=== PATIENT | female | born 1935 | race Caucasian/White ===

== ENCOUNTER → 2017-09-06 | Outpatient (CLI) | payer MEDICARE, OTHER | END | disposition home or self-care (01) | LOC: US 13:59 | DX: R60.0 Localized edema (principal) ==

== ENCOUNTER → 2018-01-03 | Outpatient (CLI) | payer MEDICARE, OTHER ==
--- NOTE | ~2018-01-03 | EKG ---
[place], [place] ELECTROCARDIOGRAM REPORT NAME: TEE NGUYEN UNIT #: [id number] ROOM: DOCTOR: EPIPHANY DRAFT REPORT BIRTHDATE: [birth year] [facility] Test Date: 2018-01-03 Test Time: 12:03:52 Pat Name: TEE NGUYEN Department: Room: Gender: F Public Records Researcher: Tisha Osman : 1935 Requested By: CRISTOBAL NGUYEN Order Number: [id number] Reading MD: Brennon Dai MD Measurements Intervals [place] Rate: 82 P: 6 VT: 185 QRS: -22 QRSD: 70 T: 1 QT: 391 QTc: 457 Interpretive Statements Sinus rhythm Frequent PACs Borderline left axis deviation Borderline T abnormalities, inferior leads Electronically Signed On 01-03-2018 19:45:34 PDT by Brennon Dai MD CM:EKGRPT:ELECTROCARDIOGRAM REPORT [id number] CRISTOBAL NGUYEN MD EPIPHANY DRAFT REPORT CRISTOBAL NGUYEN MD
== END | disposition home or self-care (01) ==
LOC: CARD 11:39
DX: I49.9 Cardiac arrhythmia, unspecified (principal)

== ENCOUNTER → 2018-10-22 | Outpatient (CLI) | payer MEDICARE, OTHER | END | disposition home or self-care (01) | LOC: US 12:23 | DX: N26.1 Atrophy of kidney (terminal) (principal); N18.9 Chronic kidney disease, unspecified ==

== ENCOUNTER → 2018-12-11 | Outpatient (CLI) | payer MEDICARE, OTHER ==
[~2018-12-11] MED LIST: MEDROL DOSEPAK4 MG PO
== END | disposition home or self-care (01) ==
LOC: RAD 12:44
DX: M51.16 Intervertebral disc disorders with radiculopathy, lumbar region (principal); M48.061 Spinal stenosis, lumbar region without neurogenic claudication; G95.89 Other specified diseases of spinal cord

== ENCOUNTER 2018-12-15 10:51 | Emergency (ER) | payer MEDICARE, OTHER ==
[~2018-12-15] VITALS: Ht 213.3 cm; Wt 72.6 kg
[2018-12-15] MEDS ORDERED: MEDROL DOSEPAK4 MG PO (13:28)
== END 2018-12-15 14:00 | disposition home or self-care (01) ==
LOC: ED 10:51
DX: S76.012A Strain of muscle, fascia and tendon of left hip, initial encounter (principal); X50.1XXA Overexertion from prolonged static or awkward postures, initial encounter; Y93.89 Activity, other specified; Y92.89 Other specified places as the place of occurrence of the external cause; Y99.8 Other external cause status

== ENCOUNTER 2018-12-30 18:33 | Inpatient (IN) | payer MEDICARE, OTHER ==
[~2018-12-30] VITALS: Ht 162.6 cm; Wt 82.8 kg
[2018-12-30] VITALS (11 sets, daily range): BP systolic 98–113; BP diastolic 43–69
[2018-12-30 18:53] LABS: BASO # 0.1 10*3/uL (0.0-0.1); BASO % 0.5 % (0.0-1.0); EOS # 0.1 10*3/uL (0.0-0.4); EOS % 0.8 % (1.0-4.0); HEMATOCRIT 37.8 % (37.0-47.0); HEMOGLOBIN 12.5 g/dl (12.0-16.0); LYMPH # 3.1 10*3/uL (1.3-4.4); LYMPH % 25.6 % (27.0-41.0); MEAN CELL VOLUME 87.7 fl (81.0-99.0); MEAN CORPUSCULAR HGB CONC 33.1 g/dl (33.0-37.0); MEAN PLATELET VOLUME 10.7 fl (9.6-12.3); MONO % 8.6 % (3.0-9.0); NEUT # 7.7 10*3/uL (2.3-7.9); NEUT % 63.5 % (47.0-73.0); PLATELET COUNT AUTOMATED 296 10*3/uL (130-400); RED BLOOD COUNT 4.31 10*6/uL (4.10-5.10); RED CELL DISTRI WIDTH 14.6 % (0-14.5); WHITE BLOOD COUNT 12.1 10*3/uL (4.8-10.8)
[2018-12-30 19:04] LABS: ACT PARTIAL THROMBO TIME 25.1 SECONDS (20.0-32.1)
[2018-12-30 19:10] LABS: ALBUMIN 3.6 gm/dl (3.1-4.5); CREATININE 1.97 mg/dL (0.55-1.02); POTASSIUM 4.1 mmol/L (3.5-5.1); TOTAL PROTEIN 6.9 gm/dL (6.4-8.2); TROPONIN I 0.016 ng/ml (<0.045)
--- NOTE | 2018-12-30 19:31 | NUR ---
PATIENT REPORTS NO URGE TO VOID AT THIS TIME
[2018-12-30 21:12] LABS: BILIRUBIN NEGATIVE (NEGATIVE); BLOOD TRACE-INTACT (NEGATIVE); CLARITY CLEAR (CLEAR); COLOR YELLOW (YELLOW); GLUCOSE NEGATIVE (NEGATIVE); KETONE NEGATIVE (NEGATIVE); LEUKO ESTERASE 1+ (NEGATIVE); NITRITE NEGATIVE (NEGATIVE); PH 5.5 (5.0-9.0)
[2018-12-30 21:19] LABS: BACTERIA 1+; EPITHELIAL CELLS 21-30
[2018-12-30 21:20] LABS: RBC 0-2 rbc/hpf (0-2)
--- NOTE | 2018-12-30 22:07 | NUR ---
A 83, admitted to , under the services of CRISTOBAL Solis MD with a diagnosis of MAREN,ORTHOSTATIC HYPOTENSION.DEHYDRATION. Chief complaint is SHORTNESS OF BREATH. Patient arrived via stretcher from ER. Monitor applied. Initial assessment completed. Vital signs taken and recorded. CRISTOBAL SOLIS MD notified of admission to the unit. Orders received. See assessment for past medical history, medications and allergies. Patient and/or family oriented to unit. [facility] visitation policy reviewed. Clothing/patient valuable form completed. OSVALDO CAAL
--- NOTE | 2018-12-30 22:30 | NUR ---
HOME MEDICATIONS UP TO DATE WITH LIST PROVIDED BY PATIENT.
[2018-12-30] MEDS ORDERED: ADULT ASPIRIN R81 MG PO (22:35)
[2018-12-30] MEDS ORDERED: AVAPRO75 MG PO (22:36)
[2018-12-30] MEDS ORDERED: CARDIZEM CD120 M2 PO (22:36)
[2018-12-30] MEDS ORDERED: CITALOPRAM10 MG PO (22:37)
[2018-12-30] MEDS ORDERED: GLIPIZIDE XL2.5 M1 PO (22:39)
[2018-12-30] MEDS ORDERED: NATURE'S BLEND F1 MG PO (22:39)
[2018-12-30] MEDS ORDERED: ALTOPREV20 MG PO (22:40)
[2018-12-30] MEDS ORDERED: MELOXICAM15 MG PO (22:40)
[2018-12-30] MEDS ORDERED: FERREX 150150 MG PO (22:42)
--- NOTE | 2018-12-30 22:45 | NUR ---
DR NGUYEN CALLED FOR ADMISSION ORDERS.SEE NEW ORDERS.
[2018-12-31] VITALS: BP 130/53
--- NOTE | 2018-12-31 00:30 | NUR ---
IV discontinued. Site a symptomatic. Pressure applied. Sterile dressing applied. IV started left antecubital with #22 angiocath after 1 attempt. The IV site was prepped with Chloraprep. Heparin lock attached. Sterile dressing applied. Patient tolerated precedure well. Procedure performed according to [facility] policy & procedure. AILEEN HERNANDEZ
--- NOTE | 2018-12-31 03:33 | NUR ---
PATIENT RESTING WITH EYES CLOSED AT THIS TIME. RESPIRATIONS EASY AND UNLABORED. NO DISTRESS NOTED. CALL LIGHT WITHIN REACH.
[2018-12-31 07:04] LABS: BASO # 0.1 10*3/uL (0.0-0.1); BASO % 0.6 % (0.0-1.0); EOS # 0.1 10*3/uL (0.0-0.4); EOS % 1.5 % (1.0-4.0); HEMATOCRIT 32.9 % (37.0-47.0); HEMOGLOBIN 10.7 g/dl (12.0-16.0); LYMPH # 1.9 10*3/uL (1.3-4.4); LYMPH % 24.5 % (27.0-41.0); MEAN CELL VOLUME 88.4 fl (81.0-99.0); MEAN CORPUSCULAR HGB 28.8 pg (27.0-31.0); MEAN CORPUSCULAR HGB CONC 32.5 g/dl (33.0-37.0); MEAN PLATELET VOLUME 10.7 fl (9.6-12.3); MONO # 0.7 10*3/uL (0.1-1.0); MONO % 9.2 % (3.0-9.0); NEUT # 4.9 10*3/uL (2.3-7.9); PLATELET COUNT AUTOMATED 243 10*3/uL (130-400); RED BLOOD COUNT 3.72 10*6/uL (4.10-5.10); RED CELL DISTRI WIDTH 14.6 % (0-14.5); WHITE BLOOD COUNT 7.8 10*3/uL (4.8-10.8)
[2018-12-31 07:34] LABS: CREATININE 1.43 mg/dL (0.55-1.02); POTASSIUM 4.3 mmol/L (3.5-5.1)
[2018-12-31 08:00] VITALS: BP 127/60
--- NOTE | 2018-12-31 08:20 | NUR ---
PT RESTING IN BED. IVF INFUSING WITH NO PROBLEM. NO C/O AT THIS TIME. CALL CON EDMOND. SEE SHIFT ASSESSMENT.
--- NOTE | 2018-12-31 10:00 | NUR ---
Discharge instructions reviewed with patient/family. Patient receptive and verbalizes understanding. Follow-up care arranged. Written instructions given to patient/family. HEPLOCK REMOVED 2X2 APPLIED. HOLTER MONITOR REMOVED. PT ESCORTED VIA WHEELCHAIR FOR DISCHARGE WITH VISITOR AT HER SIDE. RAJNI FENG R
== END 2018-12-31 10:00 | disposition home or self-care (01) | DRG 640 ==
LOC: ED 18:33 → EDHOLD 20:41 → 5E 20:41
PROVIDERS: Emergency Medicine; ADMIT Internal Medicine
DX: E86.0 Dehydration (principal); N17.0 Acute kidney failure with tubular necrosis; I95.1 Orthostatic hypotension; I12.9 Hypertensive chronic kidney disease with stage 1 through stage 4 chronic kidney disease, or unspecified chronic kidney disease; N18.9 Chronic kidney disease, unspecified; G89.29 Other chronic pain; E78.5 Hyperlipidemia, unspecified; M54.9 Dorsalgia, unspecified; F32.9 Major depressive disorder, single episode, unspecified; M16.10 Unilateral primary osteoarthritis, unspecified hip; Z91.81 History of falling; Z98.42 Cataract extraction status, left eye; Z82.49 Family history of ischemic heart disease and other diseases of the circulatory system; Z80.3 Family history of malignant neoplasm of breast

== ENCOUNTER → 2019-01-03 | Outpatient (CLI) | payer MEDICARE, OTHER ==
[~2019-01-03] MED LIST changes: +ADULT ASPIRIN R81 MG PO; +ALTOPREV20 MG PO; +AVAPRO75 MG PO; +CARDIZEM CD120 M2 PO; +CITALOPRAM10 MG PO; +FERREX 150150 MG PO; +GLIPIZIDE XL2.5 M1 PO; +MELOXICAM15 MG PO; +NATURE'S BLEND F1 MG PO
[2019-01-03 12:56] LABS: BASO % 0.5 % (0.0-1.0); EOS # 0.1 10*3/uL (0.0-0.4); EOS % 1.5 % (1.0-4.0); HEMATOCRIT 38.7 % (37.0-47.0); HEMOGLOBIN 12.6 g/dl (12.0-16.0); LYMPH # 2.3 10*3/uL (1.3-4.4); LYMPH % 27.2 % (27.0-41.0); MEAN CELL VOLUME 89.6 fl (81.0-99.0); MEAN CORPUSCULAR HGB 29.2 pg (27.0-31.0); MEAN CORPUSCULAR HGB CONC 32.6 g/dl (33.0-37.0); MEAN PLATELET VOLUME 10.7 fl (9.6-12.3); MONO # 0.7 10*3/uL (0.1-1.0); MONO % 7.7 % (3.0-9.0); NEUT # 5.2 10*3/uL (2.3-7.9); NEUT % 62.1 % (47.0-73.0); PLATELET COUNT AUTOMATED 302 10*3/uL (130-400); RED BLOOD COUNT 4.32 10*6/uL (4.10-5.10); RED CELL DISTRI WIDTH 14.6 % (0-14.5); WHITE BLOOD COUNT 8.4 10*3/uL (4.8-10.8)
[2019-01-03 13:15] LABS: CREATININE 1.46 mg/dL (0.55-1.02); POTASSIUM 4.1 mmol/L (3.5-5.1)
== END | disposition home or self-care (01) ==
LOC: LAB 12:27
PROVIDERS: Internal Medicine
DX: E61.1 Iron deficiency (principal); N18.3 Chronic kidney disease, stage 3 (moderate)

== ENCOUNTER → 2019-02-12 | Outpatient (CLI) | payer MEDICARE, OTHER | END | disposition home or self-care (01) | LOC: CARD 14:00 | DX: R06.02 Shortness of breath (principal) ==

== ENCOUNTER 2019-04-03 09:20 | Emergency (ER) | payer MEDICARE, OTHER ==
[~2019-04-03] VITALS: Ht 165.1 cm; Wt 81.6 kg
[2019-04-03] MEDS ORDERED: TESSALON PERLE100 M1 PO (10:27)
== END 2019-04-03 10:38 | disposition home or self-care (01) ==
LOC: ED 09:20
DX: J06.9 Acute upper respiratory infection, unspecified (principal); I10 Essential (primary) hypertension; E78.00 Pure hypercholesterolemia, unspecified; Z79.899 Other long term (current) drug therapy; Z79.82 Long term (current) use of aspirin

== ENCOUNTER → 2019-07-26 | Outpatient (CLI) | payer MEDICARE, OTHER ==
[~2019-07-26] MED LIST changes: +TESSALON PERLE100 M1 PO
== END | disposition home or self-care (01) ==
LOC: US 07-03 12:30
DX: I73.9 Peripheral vascular disease, unspecified (principal); Z96.642 Presence of left artificial hip joint

== ENCOUNTER 2019-12-04 12:02 | Inpatient (IN) | payer MEDICARE, OTHER ==
[~2019-12-04] VITALS: Ht 160 cm; Wt 85.5 kg
[~2019-12-04 12:02] MED LIST changes: -CITALOPRAM10 MG PO; +CITALOPRAM20 MG PO
[2019-12-04 12:05] VITALS: BP 137/57
--- NOTE | 2019-12-04 13:00 | NUR ---
PATIENT DENIES WOUNDS. A&OX4.
[2019-12-04 13:30] LABS: BASO % 0.5 % (0.0-1.0); EOS # 0.1 10*3/uL (0.0-0.4); EOS % 1.5 % (1.0-4.0); HEMATOCRIT 35.1 % (37.0-47.0); LYMPH # 1.8 10*3/uL (1.3-4.4); LYMPH % 23.4 % (27.0-41.0); MEAN CORPUSCULAR HGB 27.2 pg (27.0-31.0); MEAN CORPUSCULAR HGB CONC 31.6 g/dl (33.0-37.0); MEAN PLATELET VOLUME 10.3 fl (9.6-12.3); MONO # 0.9 10*3/uL (0.1-1.0); MONO % 11.4 % (3.0-9.0); NEUT # 4.9 10*3/uL (2.3-7.9); NEUT % 62.7 % (47.0-73.0); PLATELET COUNT AUTOMATED 297 10*3/uL (130-400); RED BLOOD COUNT 4.08 10*6/uL (4.10-5.10); RED CELL DISTRI WIDTH 15.1 % (0-14.5); WHITE BLOOD COUNT 7.9 10*3/uL (4.8-10.8)
[2019-12-04 13:40] LABS: INTERNATIONAL NORM RATIO 1.1 (2.0-3.5)
[2019-12-04 13:46] LABS: ALBUMIN 3.8 gm/dl (3.1-4.5); CREATININE 1.13 mg/dL (0.55-1.02); POTASSIUM 4.1 mmol/L (3.5-5.1); TOTAL PROTEIN 7.3 gm/dL (6.4-8.2)
--- NOTE | 2019-12-04 14:24 | NUR ---
ESCOBEDO CATH PLACED BY GAY XIAO STUDENT.
[2019-12-04 14:50] VITALS: BP 135/83
--- NOTE | 2019-12-04 15:21 | NUR ---
PATIENT TAKEN TO THE 4TH FLOOR AT THIS TIME. NO CHANGE IN PATIENT STATUS.
[2019-12-04 15:22] VITALS: BP 141/71
--- NOTE | 2019-12-04 15:25 | NUR ---
MSTime: 1525 A 84 year old FEMALE admitted to 4E under services of DR. PATRICK MCCALL,CRISTOBAL. Pt. arrived via ambulance from ER. Chief complaint: PELVIC FRACTURE. ELSA GALLAGHER.
[2019-12-04] MEDS ORDERED: VALSARTAN160 MG PO (15:40)
[2019-12-04] MEDS ORDERED: ESOMEPRAZOLE MA20 MG PO (15:40)
[2019-12-04] MEDS ORDERED: NEURONTIN300 MG PO (15:41)
[2019-12-04] MEDS ORDERED: DILTIAZEM HCL120 M2 PO (15:41)
[2019-12-04] MEDS ORDERED: LOVASTATIN20 MG PO (15:41)
--- NOTE | 2019-12-04 15:43 | NUR ---
MED REC UPDATED PER POLICY.
[2019-12-04 16:00] VITALS: BP 141/71
[2019-12-04 18:50] LABS: BILIRUBIN NEGATIVE; BLOOD TRACE-INTACT (NEGATIVE); CLARITY CLEAR (CLEAR); COLOR YELLOW (YELLOW); GLUCOSE NEGATIVE; KETONE NEGATIVE; LEUKO ESTERASE NEGATIVE (NEGATIVE); NITRITE NEGATIVE (NEGATIVE); PH 5.5 (4.5-8.0)
[2019-12-04 18:54] LABS: BACTERIA TRACE; EPITHELIAL CELLS 0-2; RBC 0-2 rbc/hpf (0-2); WBC 0-2 wbc/hpf (0-5)
--- NOTE | 2019-12-04 19:00 | NUR ---
ASSUMED CARE FOR THIS PT AT THIS TIME. PT AWAKE IN BED. PT DENIES PAIN AT PRESENT TIME. RLE EDEMATOUS AND TENDER TO TOUCH. BED ALARM ON W/CALL LIGHT IN REACH.
[2019-12-04 20:00] VITALS: BP 120/53
--- NOTE | 2019-12-04 21:16 | NUR ---
PT C/O LEFT HIP PAIN 10/10. MEDICATED W/NORCO. PT SAID SHE FEELS LIKE HER F/C IS LEAKING. NO LEAKAGE NOTED. PT DIAPHORETIC. PT HAS A HX OF DM. BGM 106. HEAT TURNED OFF IN ROOM. WILL CONTINUE TO MONITOR. CALL LIGHT IN REACH.
--- NOTE | 2019-12-04 22:16 | NUR ---
PT RESTING QUIELTY IN BED. NO FURTHER C/O PAIN VOICED. PRN NORCO EFFECTIVE FOR PAIN RELIEF.
[2019-12-05 00:27] VITALS: BP 136/65
--- NOTE | 2019-12-05 05:42 | NUR ---
PT C/O LT HIP PAIN. 11/10 MEDICATED W/NORCO PO. WILL MONITOR FOR EFFECTIVENESS. CALL LIGHT IN REACH.
[2019-12-05 06:24] LABS: BASO % 0.6 % (0.0-1.0); EOS # 0.2 10*3/uL (0.0-0.4); EOS % 2.7 % (1.0-4.0); HEMATOCRIT 34.3 % (37.0-47.0); LYMPH # 2.4 10*3/uL (1.3-4.4); LYMPH % 34.9 % (27.0-41.0); MEAN CELL VOLUME 87.7 fl (81.0-99.0); MEAN CORPUSCULAR HGB 27.6 pg (27.0-31.0); MEAN CORPUSCULAR HGB CONC 31.5 g/dl (33.0-37.0); MEAN PLATELET VOLUME 10.5 fl (9.6-12.3); MONO # 0.8 10*3/uL (0.1-1.0); MONO % 11.8 % (3.0-9.0); NEUT # 3.4 10*3/uL (2.3-7.9); NEUT % 49.6 % (47.0-73.0); PLATELET COUNT AUTOMATED 281 10*3/uL (130-400); RED BLOOD COUNT 3.91 10*6/uL (4.10-5.10); RED CELL DISTRI WIDTH 15.2 % (0-14.5); WHITE BLOOD COUNT 6.9 10*3/uL (4.8-10.8)
--- NOTE | 2019-12-05 06:42 | NUR ---
PT STATES PAIN MED WAS EFFECTIVE FOR PAIN RELIEF BUT SHE WAS UNABLE TO HAVE A BM THIS AM. PT STATES SHE IS PASSING GAS. BED ALARM ON W/CALL LIGHT IN REACH.
[2019-12-05 06:52] LABS: CREATININE 1.29 mg/dL (0.55-1.02); POTASSIUM 4.3 mmol/L (3.5-5.1)
[2019-12-05 08:00] VITALS: BP 133/71
--- NOTE | 2019-12-05 08:10 | NUR ---
IN TO SEE PATIENT REGARDING PLAN OF CARE.
--- NOTE | 2019-12-05 08:32 | NUR ---
ON FLOOR AND NOTIFIED OF CONSULT.
--- NOTE | 2019-12-05 09:00 | NUR ---
Curb Machine Operator in to talk to patient. Patient states lives at home with her . There are 4 steps in the home. Physician: Dr. Shamika Griffith Pharmacy: [facility] Home health services: none Patient's level of ADLs: MINIMAL ASSIST Patient has working utilities: yes DME: cane, walker Follow-up physician's appointment after d/c: she prefers to make her own follow up appt after discharge Does patient want to access PORTAL?: no Discharge plan discussed with patient. She is sitting up on the BSC getting ready to bathe. She lives at home with her . She states she is independent in her ADLs and has been ambulating with a cane or a walker. Discussed short term rehab and home health care services and she at this time is unsure. She states she hasn't worked with therapy yet. She had been at [facility] before and states she loves the room but didn't think they did much as far as therapy. She states they walked her up and down the riley with a walker, they had her move her fingers, and did wooden steps with her. She did have home health on discharge from [facility] but doesn't remember the name of the company at this time. Awaiting therapy recommendations. She states her can provide transportation on discharge. JAMES PAIGE
--- NOTE | 2019-12-05 10:47 | NUR ---
Occupational Therapy evaluation completed on FOUR with full evaluation to follow. Recommend occupational therapy per plan of care and SNF upon discharge. Thank you for this referral. Karina Escalante OTR/L
--- NOTE | 2019-12-05 11:31 | NUR ---
PT MEDICATED WITH PO NORCO PER PRN ORDER FOR C/O LEFT HIP PAIN. RATES PAIN 11/10. WILL MONITOR EFFECTIVENESS. PT UP IN CHAIR AT THIS TIME.
--- NOTE | 2019-12-05 11:41 | NUR ---
PHYSICAL THERAPY Physical Therapy evaluation completed on 4th floor with full evaluation to follow. Recommend physical therapy per plan of care and SNF upon discharge. Thank you for this referral. Sang Angeles SPT Alyssa Triplett PT
[2019-12-05 12:00] VITALS: BP 127/61
--- NOTE | 2019-12-05 12:31 | NUR ---
NORCO RELIEVING PAIN PER PT. WILL CONTINUE TO MONITOR.
--- NOTE | 2019-12-05 12:55 | NUR ---
PHYSICAL THERAPY Upon entering room pt remains up in recliner chair, reclined, just finished lunch, agreeable w returning to bed for possible further testing of LLE. Pt preformed Sit->stand MinAx2 w FWW w subjective observation of increased pain w movement. Pt reports "less pain than earlier but still very severe". Ambulated 5-6 pivot steps to return to bed MinAx2 FWW. Pt showed carryover of education at evaluation for proper sequencing w FWW, able to advance LLE under own power w reports of pain. Stand->sit pt required MinAx2 assistance w sequencing and pain releif of LLE, instruction provided for maximal pain releif w transfers. Pt returned to supine w ModAx2 assistance needed for LLE movement and repositioning secondary to pain levels, heels elevated, educated on ankle pumps. Upon end of session pt remained in supine, tray table in reach, call navarrete in reach. Nsg was informed on pts muliple Joint replacments and possible issue w MRI, per nsg will inform radiology. Sang Angeles SPT Alyssa Triplett PT
--- NOTE | 2019-12-05 15:20 | NUR ---
PATIENT OFF FLOOR FOR SCHEDULED MRI.
[2019-12-05 16:00] VITALS: BP 117/58
--- NOTE | 2019-12-05 16:26 | NUR ---
PT RETURNED TO ROOM FROM SCHEDULED MRI.
--- NOTE | 2019-12-05 16:50 | NUR ---
PT MEDICATED WITH PO NORCO PER PRN ORDER FOR C/O LEFT HIP PAIN. RATES PAIN 11/10. WILL MONITOR EFFECTIVENESS.
--- NOTE | 2019-12-05 17:50 | NUR ---
NORCO RELIEVING PAIN PER PT. WILL CONTINUE TO MONITOR.
--- NOTE | 2019-12-05 18:56 | NUR ---
ESCOBEDO DISCONTINUED PER ORDER. PT TOLERATED WELL. WILL MONITOR OUTPUT.
--- NOTE | 2019-12-05 19:00 | NUR ---
PT RESTING QUIETLY IN BED. ASSUMED CARE FOR THIS PT AT THIS TIME. NO S/S OF DISTRESS NOTED. CALL LIGHT IN REACH W/BED ALARM ON.
[2019-12-05 20:00] VITALS: BP 115/47
--- NOTE | 2019-12-05 21:24 | NUR ---
PT C/O LT HIP PAIN 08/10. MEDICATED W/NORCO. PT AWAKEN IN BED. ENCOURAGED TO AMBULATE AND GET OOB MORE OFTEN DURING THE DAY. PT STATES, "IT MAKES MY LEG HURT." WBAT DISCUSSED W/PT. CALL LIGHT IN REACH.
--- NOTE | 2019-12-05 22:24 | NUR ---
PT RESTING QUIETLY IN BED. PRN NORCO EFFECTIVE AT THIS TIME.
[2019-12-06] VITALS: BP 132/60
--- NOTE | 2019-12-06 05:47 | NUR ---
PT C/O LT HIP PAIN 7.5/10. PT RESTING QUIETLY IN BED. MEDICATED W/PO NORCO. WILL MONITOR FOR EFFECTIVENESS. CALL LIGHT IN REACH W/BED ALARM ON.
--- NOTE | 2019-12-06 07:30 | NUR ---
ASSUMED CARE FOR PT AT THIS TIME, PT RESTING IN BED. CALL LIGHT WITHIN REACH.
[2019-12-06 08:00] VITALS: BP 146/73
--- NOTE | 2019-12-06 08:30 | NUR ---
CM in to see patient. Dr. Griffith is room. Discussed short term rehab and she doesn't want to return to [facility] as she states their therapy she feels didn't do a lot for her. When provided with a list of other facilities she chose [facility]. Informed patient she will need a 3 night stay for Medicare and COVID testing. She verbalized an understanding. menu planner notified.
--- NOTE | 2019-12-06 09:21 | NUR ---
Patient requesting a referral to [facility]. Contacted facility and faxed referral. Requires a 3 night stay and covid 19 results prior to admission. Waiting on review/acceptance/covid results.
--- NOTE | 2019-12-06 10:00 | NUR ---
CM called to patient's room. Patient would like a referral sent to [facility]. Informed patient will have to check for bed availability. Patient verbalized an understanding. conference planner notified.
--- NOTE | 2019-12-06 10:39 | NUR ---
Shift chart check completed.
--- NOTE | 2019-12-06 10:40 | NUR ---
PHYSICAL THERAPY Patient seen this am 1:1 for therapy visit and was sitting up in bedside chair upon therapist arrival. Patient identified by name / and was joined by OT assistant spa manager for observation this session. Patient reports 5-6/10 L hip pain and reviewed standard hip precautions, voicing her understanding. Patient transfers sit to stand from low chair surface MIN A, completing SPT to BSC, use of wh walker, demonstrating initial difficulty advancing L LE, CGA x 1. Patient instructed to improve standing weight shifting and was able to complete transfer safely and returned to bedside chair for a brief seated rest break. Patient performed sit to stand, however this attempt improved to CGA due to improved transfer technique and ambulated 20'x 1, CGA, wh walker, demonstrating slow, cautious lorena with "step to" gait pattern. Patient needed rolling bedside chair follow secondary to quick onset of fatiuge and reported no change in pain c/o during gait ex. Patient returned to supine in bed, MOD A, including Theraist support of L LE and remained in bed with call light, tray table, telephone and bed alarm for safety. Will continue per POC as tolerated, total treatment time 17 minutes. Aristides Mary, ORTHODONTIC TECHNICIAN ASSISTANT
--- NOTE | 2019-12-06 10:50 | NUR ---
Patient is now stating instead of [facility] she would like her referral sent to [facility]. contacted E[facility] who stated there are beds open at [facility]. Faxed referral. Waiting on review/acceptance. Requires 3 night stay and covid test (can be pending)
--- NOTE | 2019-12-06 11:00 | NUR ---
OT NOTE Pt was sitting up in recliner agreeable to 30 minute OT session. Prior to start of session pt verbalized hip precautions with fair carry over (able to recall 2/3).Identified by name and date of with complaints of 5-6/10 left hip pain. Sit-stand Michelle due to low rise recliner and hip pain. Stand-pivot to BS CGA with w/w for UB support. Transferring on and off [facility] CGA with w/w. Pts balance was challenged by weight shifting in all planes appropriate for precautions at CGA and w/w for support. Balance was F. Functional mobility from recliner to hallway CGA with w/w. Pt was able to tolerate approx 5 minutes of activity before sitting. Pt pushed back to room in recliner. Sit-stand from recliner CGA with w/w for support. Stand pivot from recliner to EOB CGA with w/w. ModA to position pt back in bed due to fatigue and left hip pain. Alarm active and call light in reach. Continue d/c recommended SNF. CARLOS Blackwell/ZOILA Lincoln/Mason
[2019-12-06 12:00] VITALS: BP 133/83
--- NOTE | 2019-12-06 12:44 | NUR ---
Patient has been accepted to [facility], hospital exeption complete. Requires one more night stay; able to go with covid pending test results on Monday12/07/2019.
--- NOTE | 2019-12-06 12:45 | NUR ---
Notified Dr. Griffith patient can be discharged to [facility] tomorrow if medically stable.
--- NOTE | 2019-12-06 12:54 | NUR ---
ELIEL GIVEN FOR COMPLAINTS OF LEFT LEG/HIP PAIN. CALL LIGHT IN REACH. WILL MONITOR.
--- NOTE | 2019-12-06 13:54 | NUR ---
PRN NORCO WAS REPORTED EFFECTIVE PER PT.
--- NOTE | 2019-12-06 14:25 | NUR ---
OCCUPATIONAL THERAPY CO-SIGN I approve of the Occupational Therapy notes written above. SANDEEP CHILDERS, OTR/L
--- NOTE | 2019-12-06 14:28 | NUR ---
PHYSICAL THERAPY CO-SIGN I approve of the Physical Therapy notes written above. Alyssa Triplett PT
--- NOTE | 2019-12-06 17:21 | NUR ---
PT REQUESTING PRN NORCO FOR 5/10 HIP PAIN, STATES IT GETS WORSE WITH MOVEMENT. REPOSITIONED FOR COMFORT.
--- NOTE | 2019-12-06 18:21 | NUR ---
PT REPORTS PRN NORCO EFFECTIVE FOR PAIN CONTROL.
[2019-12-06 20:00] VITALS: BP 121/66
--- NOTE | 2019-12-06 23:15 | NUR ---
PT C/O LT HIP PAIN 09/10. MEDICATED W/NORCO PO. BED ALARM ON W/CALL LIGHT IN REACH.
[2019-12-07] VITALS: BP 107/92
--- NOTE | 2019-12-07 00:15 | NUR ---
PT RESTING QUIETLY IN BED AT THIS TIME. PRN NORCO EFFECTIVE FOR PAIN RELIEF.
--- NOTE | 2019-12-07 06:13 | NUR ---
PT C/O LT HIP PAIN 09/10. MEDICATED W/NORCO.
[2019-12-07 06:27] LABS: BASO % 0.5 % (0.0-1.0); EOS # 0.2 10*3/uL (0.0-0.4); EOS % 2.9 % (1.0-4.0); HEMATOCRIT 33.2 % (37.0-47.0); LYMPH # 2.1 10*3/uL (1.3-4.4); LYMPH % 27.2 % (27.0-41.0); MEAN CELL VOLUME 86.5 fl (81.0-99.0); MEAN CORPUSCULAR HGB 27.1 pg (27.0-31.0); MEAN CORPUSCULAR HGB CONC 31.3 g/dl (33.0-37.0); MEAN PLATELET VOLUME 10.5 fl (9.6-12.3); MONO # 0.6 10*3/uL (0.1-1.0); MONO % 8.2 % (3.0-9.0); NEUT # 4.7 10*3/uL (2.3-7.9); NEUT % 60.7 % (47.0-73.0); PLATELET COUNT AUTOMATED 306 10*3/uL (130-400); RED BLOOD COUNT 3.84 10*6/uL (4.10-5.10); RED CELL DISTRI WIDTH 15.3 % (0-14.5); WHITE BLOOD COUNT 7.8 10*3/uL (4.8-10.8)
[2019-12-07 06:38] LABS: CREATININE 1.16 mg/dL (0.55-1.02); POTASSIUM 4.4 mmol/L (3.5-5.1)
--- NOTE | 2019-12-07 06:50 | NUR ---
PT RESTING QUIETLY IN BED AT THIS TIME. PRN NORCO EFFECTIVE FOR PAIN RELIEF.
[2019-12-07] MEDS ORDERED: HYDROCODONE-AC1 EAC1 PO (07:51)
[2019-12-07] MEDS ORDERED: VITAMIN D350 MC2 PO (07:51)
[2019-12-07 08:00] VITALS: BP 127/56
[2019-12-07 09:27] LABS: FERRITIN 42.3 ng/mL (10.0-291.0)
[2019-12-07 12:00] VITALS: BP 137/65
--- NOTE | 2019-12-07 12:45 | NUR ---
NORCO GIVEN FOR PAIN TO LEFT HIP AREA RATED 6/10. CALL LIGHT IN REACH.
--- NOTE | 2019-12-07 13:13 | NUR ---
Discharge instructions reviewed with patient/family. Patient receptive and verbalizes understanding. Follow-up care arranged. Written instructions given to patient/family. NEDA DIAZ
--- NOTE | 2019-12-07 13:20 | NUR ---
NURSE TO NURSE REPORT GIVEN TO [facility].
== END 2019-12-07 13:29 | disposition other institution (70) | DRG 536 ==
LOC: ED 12:02 → EDHOLD 14:22 → 4E 14:22
PROVIDERS: Family Medicine; ADMIT Internal Medicine; ATTEND Internal Medicine
DX: S32.512A Fracture of superior rim of left pubis, initial encounter for closed fracture (principal); M48.00 Spinal stenosis, site unspecified; M54.10 Radiculopathy, site unspecified; I12.9 Hypertensive chronic kidney disease with stage 1 through stage 4 chronic kidney disease, or unspecified chronic kidney disease; Z20.828 Contact with and (suspected) exposure to other viral communicable diseases; E78.2 Mixed hyperlipidemia; E11.22 Type 2 diabetes mellitus with diabetic chronic kidney disease; G89.29 Other chronic pain; M19.90 Unspecified osteoarthritis, unspecified site; N18.3 Chronic kidney disease, stage 3 (moderate); D50.9 Iron deficiency anemia, unspecified; Z98.42 Cataract extraction status, left eye; Z96.651 Presence of right artificial knee joint; Z96.641 Presence of right artificial hip joint; Z96.642 Presence of left artificial hip joint; Z79.899 Other long term (current) drug therapy; X58.XXXA Exposure to other specified factors, initial encounter; Y93.89 Activity, other specified; Y92.89 Other specified places as the place of occurrence of the external cause; Y99.8 Other external cause status

== ENCOUNTER → 2020-04-09 | Outpatient (CLI) | payer MEDICARE, OTHER ==
[~2020-04-09] MED LIST changes: +DILTIAZEM HCL120 M2 PO; +ESOMEPRAZOLE MA20 MG PO; +HYDROCODONE-AC1 EAC1 PO; +LOVASTATIN20 MG PO; +NEURONTIN300 MG PO; +VALSARTAN160 MG PO; +VITAMIN D350 MC2 PO
[2020-04-09 09:52] LABS: BASO % 0.3 % (0.0-1.0); EOS % 0.1 % (1.0-4.0); HEMATOCRIT 37.2 % (37.0-47.0); LYMPH # 2.9 10*3/uL (1.3-4.4); LYMPH % 29.5 % (27.0-41.0); MEAN CELL VOLUME 87.5 fl (81.0-99.0); MEAN CORPUSCULAR HGB 28.2 pg (27.0-31.0); MEAN CORPUSCULAR HGB CONC 32.3 g/dl (33.0-37.0); MEAN PLATELET VOLUME 10.4 fl (9.6-12.3); MONO # 0.9 10*3/uL (0.1-1.0); MONO % 9.6 % (3.0-9.0); NEUT # 5.8 10*3/uL (2.3-7.9); NEUT % 59.3 % (47.0-73.0); PLATELET COUNT AUTOMATED 346 10*3/uL (130-400); RED BLOOD COUNT 4.25 10*6/uL (4.10-5.10); RED CELL DISTRI WIDTH 14.5 % (0-14.5); WHITE BLOOD COUNT 9.8 10*3/uL (4.8-10.8)
== END | disposition home or self-care (01) ==
LOC: LAB 08:52
PROVIDERS: ATTEND Orthopaedic Surgery
DX: I10 Essential (primary) hypertension (principal); E11.9 Type 2 diabetes mellitus without complications; M54.5 Low back pain; M25.559 Pain in unspecified hip

== ENCOUNTER 2020-04-10 10:43 | Inpatient (IN) | payer MEDICARE, OTHER ==
[~2020-04-10] VITALS: Ht 162.5 cm; Wt 80.4 kg
[2020-04-10 10:51] VITALS: BP 106/56
[2020-04-10 15:46] LABS: BILIRUBIN Negative (Negative); BLOOD Negative (Negative); CLARITY Clear (Clear); COLOR Yellow (Yellow); GLUCOSE Negative (Negative); KETONE Negative (Negative); LEUKO ESTERASE Negative (Negative); NITRITE Negative (Negative); PH 5.5 (4.5-8.0); UROBILINOGEN 0.2 E.U./dl (0.0-1.0)
[2020-04-10 15:50] VITALS: BP 110/60
[2020-04-10 16:00] VITALS: BP 90/60
[2020-04-10 16:06] LABS: BACTERIA TRACE; EPITHELIAL CELLS 0-2; RBC 0-2 rbc/hpf (0-2); WBC 0-2 wbc/hpf (0-5)
[2020-04-10 20:00] VITALS: BP 85/53
[2020-04-10 21:00] VITALS: BP 100/52
[2020-04-11] VITALS: BP 104/50
[2020-04-11 08:00] VITALS: BP 121/61
[2020-04-11 12:00] VITALS: BP 122/68
[2020-04-11 16:00] VITALS: BP 107/56
[2020-04-11 20:00] VITALS: BP 104/54
[2020-04-12] VITALS: BP 109/78
[2020-04-12 08:00] VITALS: BP 113/62
[2020-04-12 12:00] VITALS: BP 102/51
[2020-04-12 16:00] VITALS: BP 103/48
[2020-04-12 20:00] VITALS: BP 93/55
[2020-04-12 20:34] VITALS: BP 100/58
[2020-04-13] VITALS: BP 109/52
[2020-04-13 06:13] LABS: CREATININE 1.3 mg/dL (0.55-1.02); POTASSIUM 4.2 mmol/L (3.5-5.1)
[2020-04-13 06:33] LABS: BASO # 0.1 10*3/uL (0.0-0.1); BASO % 0.7 % (0.0-1.0); EOS # 0.2 10*3/uL (0.0-0.4); EOS % 2.7 % (1.0-4.0); HEMATOCRIT 35.6 % (37.0-47.0); LYMPH # 2.1 10*3/uL (1.3-4.4); LYMPH % 26.8 % (27.0-41.0); MEAN CELL VOLUME 87.3 fl (81.0-99.0); MEAN CORPUSCULAR HGB 27.5 pg (27.0-31.0); MEAN CORPUSCULAR HGB CONC 31.5 g/dl (33.0-37.0); MEAN PLATELET VOLUME 10.2 fl (9.6-12.3); MONO % 12.4 % (3.0-9.0); NEUT # 4.3 10*3/uL (2.3-7.9); NEUT % 56.1 % (47.0-73.0); PLATELET COUNT AUTOMATED 309 10*3/uL (130-400); RED BLOOD COUNT 4.08 10*6/uL (4.10-5.10); RED CELL DISTRI WIDTH 14.6 % (0-14.5); WHITE BLOOD COUNT 7.7 10*3/uL (4.8-10.8)
[2020-04-13 08:00] VITALS: BP 116/75
[2020-04-13 12:00] VITALS: BP 121/69
[2020-04-13 16:00] VITALS: BP 104/47
[2020-04-13 20:00] VITALS: BP 101/55
[2020-04-14] VITALS: BP 116/55
[2020-04-14 08:00] VITALS: BP 98/61
[2020-04-14 12:00] VITALS: BP 88/50; BP 92/48
[2020-04-14 13:36] LABS: BASO % 0.6 % (0.0-1.0); EOS # 0.2 10*3/uL (0.0-0.4); EOS % 2.6 % (1.0-4.0); HEMATOCRIT 34.6 % (37.0-47.0); LYMPH # 1.7 10*3/uL (1.3-4.4); LYMPH % 23.4 % (27.0-41.0); MEAN CELL VOLUME 86.9 fl (81.0-99.0); MEAN CORPUSCULAR HGB 27.6 pg (27.0-31.0); MEAN CORPUSCULAR HGB CONC 31.8 g/dl (33.0-37.0); MEAN PLATELET VOLUME 9.9 fl (9.6-12.3); MONO # 0.8 10*3/uL (0.1-1.0); MONO % 11.4 % (3.0-9.0); NEUT # 4.4 10*3/uL (2.3-7.9); PLATELET COUNT AUTOMATED 282 10*3/uL (130-400); RED BLOOD COUNT 3.98 10*6/uL (4.10-5.10); RED CELL DISTRI WIDTH 14.8 % (0-14.5); WHITE BLOOD COUNT 7.3 10*3/uL (4.8-10.8)
[2020-04-14 13:47] LABS: CREATININE 1.5 mg/dL (0.55-1.02); POTASSIUM 4.1 mmol/L (3.5-5.1)
[2020-04-14 16:00] VITALS: BP 90/52
[2020-04-14 20:00] VITALS: BP 107/65
[2020-04-15] VITALS: BP 99/48
[2020-04-15 08:00] VITALS: BP 99/62
[2020-04-15 12:00] VITALS: BP 131/62
== END 2020-04-15 14:20 | disposition home health service (06) | DRG 536 ==
LOC: ED 10:43 → 5E 14:29 → EDHOLD 14:29 → 5E 15:44
PROVIDERS: Internal Medicine; ADMIT Internal Medicine; ATTEND Internal Medicine
DX: S32.591A Other specified fracture of right pubis, initial encounter for closed fracture (principal); S32.10XA Unspecified fracture of sacrum, initial encounter for closed fracture; S32.511A Fracture of superior rim of right pubis, initial encounter for closed fracture; R62.7 Adult failure to thrive; Z96.651 Presence of right artificial knee joint; Z96.641 Presence of right artificial hip joint; N18.31 Chronic kidney disease, stage 3a; M19.90 Unspecified osteoarthritis, unspecified site; X58.XXXA Exposure to other specified factors, initial encounter; D63.8 Anemia in other chronic diseases classified elsewhere; M48.00 Spinal stenosis, site unspecified; I12.9 Hypertensive chronic kidney disease with stage 1 through stage 4 chronic kidney disease, or unspecified chronic kidney disease; Z79.1 Long term (current) use of non-steroidal anti-inflammatories (NSAID); Z79.899 Other long term (current) drug therapy; Y93.89 Activity, other specified; Y92.89 Other specified places as the place of occurrence of the external cause; Y99.8 Other external cause status; Z68.30 Body mass index [BMI] 30.0-30.9, adult

== ENCOUNTER → 2020-06-19 | Outpatient (CLI) | payer MEDICARE, OTHER | END | disposition home or self-care (01) | LOC: US 12:34 | PROVIDERS: ATTEND Internal Medicine | DX: R22.43 Localized swelling, mass and lump, lower limb, bilateral (principal) ==

== ENCOUNTER → 2020-09-15 | Outpatient (CLI) | payer MEDICARE, OTHER ==
[2020-09-15 15:13] LABS: BASO # 0.1 10*3/uL (0.0-0.1); BASO % 0.8 % (0.0-1.0); EOS # 0.1 10*3/uL (0.0-0.4); HEMATOCRIT 35.1 % (37.0-47.0); LYMPH # 3.2 10*3/uL (1.3-4.4); LYMPH % 38.4 % (27.0-41.0); MEAN CELL VOLUME 83.8 fl (81.0-99.0); MEAN CORPUSCULAR HGB 26.3 pg (27.0-31.0); MEAN CORPUSCULAR HGB CONC 31.3 g/dl (33.0-37.0); MEAN PLATELET VOLUME 11.4 fl (9.6-12.3); MONO # 0.6 10*3/uL (0.1-1.0); MONO % 7.1 % (3.0-9.0); NEUT # 4.3 10*3/uL (2.3-7.9); NEUT % 52.2 % (47.0-73.0); PLATELET COUNT AUTOMATED 305 10*3/uL (130-400); RED BLOOD COUNT 4.19 10*6/uL (4.10-5.10); RED CELL DISTRI WIDTH 15.5 % (0-14.5); WHITE BLOOD COUNT 8.3 10*3/uL (4.8-10.8)
[2020-09-15 15:54] LABS: ALBUMIN 3.6 gm/dl (3.1-4.5)
[2020-09-15 16:01] LABS: CREATININE 1.41 mg/dL (0.55-1.02); FREE T4 0.86 ng/dl (0.76-1.46); THYROID STIM HORMONE (HS) 1.98 uIU/ml (0.358-4.75); TOTAL PROTEIN 7.3 gm/dL (6.4-8.2)
[2020-09-15 16:50] LABS: VITAMIN D, 25-HYDROXY 34.6 ng/mL (30-100)
== END | disposition home or self-care (01) ==
LOC: LAB 13:11 → RAD 13:30
PROVIDERS: ATTEND Internal Medicine
DX: I10 Essential (primary) hypertension (principal); R62.7 Adult failure to thrive; E55.9 Vitamin D deficiency, unspecified; Z13.228 Encounter for screening for other metabolic disorders; Z13.9 Encounter for screening, unspecified; Z13.0 Encounter for screening for diseases of the blood and blood-forming organs and certain disorders involving the immune mechanism; Z78.0 Asymptomatic menopausal state

== ENCOUNTER → 2021-07-07 | Outpatient (CLI) | payer MEDICARE, OTHER | END | disposition home or self-care (01) | LOC: CARD 10:21 | PROVIDERS: ATTEND Internal Medicine | DX: R06.02 Shortness of breath (principal) ==

== ENCOUNTER → 2022-04-20 | Outpatient (CLI) | payer MEDICARE, OTHER ==
[2022-04-20 13:58] LABS: BASO # 0.1 10*3/uL (0.0-0.1); BASO % 0.9 % (0.0-1.0); EOS # 0.1 10*3/uL (0.0-0.4); EOS % 1.3 % (1.0-4.0); HEMATOCRIT 34.7 % (37.0-47.0); LYMPH # 2.8 10*3/uL (1.3-4.4); LYMPH % 29.3 % (27.0-41.0); MEAN CELL VOLUME 89.2 fl (81.0-99.0); MEAN CORPUSCULAR HGB 28.8 pg (27.0-31.0); MEAN CORPUSCULAR HGB CONC 32.3 g/dl (33.0-37.0); MEAN PLATELET VOLUME 10.6 fl (9.6-12.3); MONO # 0.7 10*3/uL (0.1-1.0); MONO % 7.8 % (3.0-9.0); NEUT # 5.7 10*3/uL (2.3-7.9); NEUT % 60.2 % (47.0-73.0); PLATELET COUNT AUTOMATED 307 10*3/uL (130-400); RED BLOOD COUNT 3.89 10*6/uL (4.10-5.10); RED CELL DISTRI WIDTH 13.5 % (0-14.5); WHITE BLOOD COUNT 9.5 10*3/uL (4.8-10.8)
[2022-04-20 14:13] LABS: FREE T4 1.08 ng/dl (0.89-1.76); POTASSIUM 5.1 mmol/L (3.4-5.1); THYROID STIM HORMONE (HS) 3.746 uIU/ml (0.550-4.780); TOTAL PROTEIN 6.8 gm/dL (6.0-8.0)
[2022-04-20 14:25] LABS: VITAMIN D, 25-HYDROXY 34.6 ng/mL (30-100)
== END | disposition home or self-care (01) ==
LOC: LAB 13:32
PROVIDERS: ATTEND Internal Medicine
DX: I49.1 Atrial premature depolarization (principal); I10 Essential (primary) hypertension; E11.9 Type 2 diabetes mellitus without complications; D50.8 Other iron deficiency anemias; Z13.820 Encounter for screening for osteoporosis; Z13.0 Encounter for screening for diseases of the blood and blood-forming organs and certain disorders involving the immune mechanism; Z13.6 Encounter for screening for cardiovascular disorders; E55.9 Vitamin D deficiency, unspecified; Z13.1 Encounter for screening for diabetes mellitus; Z13.220 Encounter for screening for lipoid disorders; Z13.21 Encounter for screening for nutritional disorder; Z13.228 Encounter for screening for other metabolic disorders; Z13.89 Encounter for screening for other disorder; Z13.9 Encounter for screening, unspecified

== ENCOUNTER → 2022-05-31 | Outpatient (CLI) | payer MEDICARE, OTHER ==
[2022-05-31 12:10] LABS: POTASSIUM 4.7 mmol/L (3.4-5.1)
== END | disposition home or self-care (01) ==
LOC: LAB 05:49
PROVIDERS: ATTEND Internal Medicine
DX: Z13.0 Encounter for screening for diseases of the blood and blood-forming organs and certain disorders involving the immune mechanism (principal); Z13.220 Encounter for screening for lipoid disorders; Z13.1 Encounter for screening for diabetes mellitus; Z13.21 Encounter for screening for nutritional disorder; Z13.6 Encounter for screening for cardiovascular disorders; Z13.9 Encounter for screening, unspecified

== ENCOUNTER 2022-07-23 19:35 | Emergency (ER) | payer MEDICARE, OTHER ==
[2022-07-23 20:05] LABS: BASO # 0.1 10*3/uL (0.0-0.1); BASO % 0.9 % (0.0-1.0); EOS # 0.1 10*3/uL (0.0-0.4); EOS % 1.8 % (1.0-4.0); HEMATOCRIT 33.4 % (37.0-47.0); LYMPH # 2.3 10*3/uL (1.3-4.4); MEAN CELL VOLUME 82.7 fl (81.0-99.0); MEAN CORPUSCULAR HGB 25.5 pg (27.0-31.0); MEAN CORPUSCULAR HGB CONC 30.8 g/dl (33.0-37.0); MEAN PLATELET VOLUME 10.1 fl (9.6-12.3); MONO # 0.6 10*3/uL (0.1-1.0); MONO % 8.6 % (3.0-9.0); NEUT # 3.6 10*3/uL (2.3-7.9); NEUT % 53.5 % (47.0-73.0); PLATELET COUNT AUTOMATED 321 10*3/uL (130-400); RED BLOOD COUNT 4.04 10*6/uL (4.10-5.10); RED CELL DISTRI WIDTH 15.3 % (0-14.5); WHITE BLOOD COUNT 6.7 10*3/uL (4.8-10.8)
[2022-07-23 20:20] LABS: POTASSIUM 4.4 mmol/L (3.4-5.1); TOTAL PROTEIN 6.6 gm/dL (6.0-8.0)
== END 2022-07-23 23:01 | disposition home or self-care (01) ==
LOC: ED 19:35
PROVIDERS: Internal Medicine
DX: R07.89 Other chest pain (principal); M54.2 Cervicalgia; M79.642 Pain in left hand; N18.4 Chronic kidney disease, stage 4 (severe); I12.9 Hypertensive chronic kidney disease with stage 1 through stage 4 chronic kidney disease, or unspecified chronic kidney disease; F41.9 Anxiety disorder, unspecified; F32.A Depression, unspecified; E78.00 Pure hypercholesterolemia, unspecified; D64.9 Anemia, unspecified; Z98.890 Other specified postprocedural states; Z98.42 Cataract extraction status, left eye; Z96.651 Presence of right artificial knee joint

== ENCOUNTER → 2023-05-01 | Outpatient (CLI) | payer MEDICARE, OTHER ==
[~2023-05-01] MED LIST changes: +BUSPAR5 MG PO; +DETROL2 MG PO; +VOLTAREN ARTHRI20 GM T
== END | disposition home or self-care (01) ==
LOC: CARD 00:57
PROVIDERS: ATTEND Internal Medicine
DX: I49.3 Ventricular premature depolarization (principal)

== ENCOUNTER → 2023-07-17 | Outpatient (CLI) | payer MEDICARE, OTHER ==
[2023-07-17 09:03] LABS: BASO # 0.1 10*3/uL (0.0-0.1); BASO % 0.9 % (0.0-1.0); EOS # 0.1 10*3/uL (0.0-0.4); EOS % 1.1 % (1.0-4.0); HEMATOCRIT 37.2 % (37.0-47.0); LYMPH # 2.7 10*3/uL (1.3-4.4); LYMPH % 34.3 % (27.0-41.0); MEAN CELL VOLUME 83.2 fl (81.0-99.0); MEAN CORPUSCULAR HGB 26.2 pg (27.0-31.0); MEAN CORPUSCULAR HGB CONC 31.5 g/dl (33.0-37.0); MEAN PLATELET VOLUME 10.2 fl (9.6-12.3); MONO # 0.7 10*3/uL (0.1-1.0); MONO % 8.3 % (3.0-9.0); NEUT # 4.3 10*3/uL (2.3-7.9); PLATELET COUNT AUTOMATED 300 10*3/uL (130-400); RED BLOOD COUNT 4.47 10*6/uL (4.10-5.10); RED CELL DISTRI WIDTH 16.1 % (0-14.5); WHITE BLOOD COUNT 7.9 10*3/uL (4.8-10.8)
[2023-07-17 09:32] LABS: POTASSIUM 4.3 mmol/L (3.4-5.1); TOTAL PROTEIN 7.2 gm/dL (6.0-8.0)
[2023-07-17 09:56] LABS: VITAMIN D, 25-HYDROXY 38.4 ng/mL (30-100)
== END | disposition home or self-care (01) ==
LOC: LAB 08:42
PROVIDERS: ATTEND Internal Medicine
DX: Z13.0 Encounter for screening for diseases of the blood and blood-forming organs and certain disorders involving the immune mechanism (principal); Z13.1 Encounter for screening for diabetes mellitus; Z13.21 Encounter for screening for nutritional disorder; Z13.220 Encounter for screening for lipoid disorders; Z13.228 Encounter for screening for other metabolic disorders; Z13.29 Encounter for screening for other suspected endocrine disorder; Z13.6 Encounter for screening for cardiovascular disorders; Z13.89 Encounter for screening for other disorder; Z13.9 Encounter for screening, unspecified; I12.9 Hypertensive chronic kidney disease with stage 1 through stage 4 chronic kidney disease, or unspecified chronic kidney disease; N18.30 Chronic kidney disease, stage 3 unspecified; F41.1 Generalized anxiety disorder

== ENCOUNTER 2024-04-27 12:49 | Emergency (ER) | payer MEDICARE ==
[~2024-04-27] VITALS: Ht 162.5 cm; Wt 81.2 kg
[2024-04-27 13:25] LABS: BASO # 0.1 10*3/uL (0.0-0.1); BASO % 0.7 % (0.0-1.0); EOS # 0.1 10*3/uL (0.0-0.4); EOS % 0.9 % (1.0-4.0); HEMATOCRIT 35.1 % (37.0-47.0); MEAN CELL VOLUME 85.4 fl (81.0-99.0); MEAN CORPUSCULAR HGB 26.5 pg (27.0-31.0); MEAN CORPUSCULAR HGB CONC 31.1 g/dl (33.0-37.0); MEAN PLATELET VOLUME 10.5 fl (9.6-12.3); MONO # 0.7 10*3/uL (0.1-1.0); MONO % 9.4 % (3.0-9.0); NEUT # 4.1 10*3/uL (2.3-7.9); NEUT % 59.7 % (47.0-73.0); PLATELET COUNT AUTOMATED 264 10*3/uL (130-400); RED BLOOD COUNT 4.11 10*6/uL (4.10-5.10); RED CELL DISTRI WIDTH 14.8 % (0-14.5); WHITE BLOOD COUNT 6.9 10*3/uL (4.8-10.8)
[2024-04-27 13:42] LABS: POTASSIUM 4.2 mmol/L (3.4-5.1)
== END 2024-04-27 14:16 | disposition home or self-care (01) ==
LOC: ED 12:49
PROVIDERS: Emergency Medicine
DX: S80.11XA Contusion of right lower leg, initial encounter (principal); I10 Essential (primary) hypertension; F41.9 Anxiety disorder, unspecified; E78.5 Hyperlipidemia, unspecified; R60.0 Localized edema; Z79.82 Long term (current) use of aspirin; Z79.899 Other long term (current) drug therapy; Z96.651 Presence of right artificial knee joint; W22.8XXA Striking against or struck by other objects, initial encounter; Y93.89 Activity, other specified; Y92.89 Other specified places as the place of occurrence of the external cause; Y99.8 Other external cause status

== ENCOUNTER 2024-12-22 15:21 | Emergency (ER) | payer MEDICARE ==
[~2024-12-22] VITALS: Ht 165.1 cm; Wt 77.1 kg
[2024-12-22] MEDS ORDERED: AVPAK AZITHROM250 M1 PO (16:23)
== END 2024-12-22 17:43 | disposition home or self-care (01) ==
LOC: ED 15:21
DX: J40 Bronchitis, not specified as acute or chronic (principal); I10 Essential (primary) hypertension; Z79.899 Other long term (current) drug therapy; Z79.82 Long term (current) use of aspirin; Z96.651 Presence of right artificial knee joint; Z96.641 Presence of right artificial hip joint

== ENCOUNTER 2025-02-27 19:56 | Emergency (ER) | payer MEDICARE, OTHER ==
[~2025-02-27] VITALS: Ht 165.1 cm; Wt 79.4 kg
[~2025-02-27 19:56] MED LIST changes: +AVPAK AZITHROM250 M1 PO
[2025-02-27] MEDS ORDERED: Lidocaine Hydrochloride 30 ML VIAL IJ ONE (20:30)
[2025-02-27] MEDS ORDERED: Tdap Vaccine 0.5 ML SYR (Adult Vaccine) IM ONE (20:30)
[2025-02-27] MEDS ORDERED: CEPHALEXIN 500 MG CAP PO ONE (21:50)
[2025-02-27] MEDS ORDERED: CEPHALEXIN500 M1 PO (21:52)
== END 2025-02-27 21:56 | disposition home or self-care (01) ==
LOC: ED 19:56
DX: S81.812A Laceration without foreign body, left lower leg, initial encounter (principal); E78.5 Hyperlipidemia, unspecified; Z79.899 Other long term (current) drug therapy; Z79.82 Long term (current) use of aspirin; Z96.661 Presence of right artificial ankle joint; W23.0XXA Caught, crushed, jammed, or pinched between moving objects, initial encounter; Y93.89 Activity, other specified; Y92.810 Car as the place of occurrence of the external cause; Y99.8 Other external cause status

== ENCOUNTER → 2025-03-05 | Outpatient (CLI) | payer MEDICARE, OTHER ==
[~2025-03-05] MED LIST changes: +CEPHALEXIN500 M1 PO
== END | disposition home or self-care (01) ==
LOC: WOUNDCARE 01:26
PROVIDERS: ATTEND Nurse Practitioner Family
DX: S81.812A Laceration without foreign body, left lower leg, initial encounter (principal); I87.2 Venous insufficiency (chronic) (peripheral); E78.5 Hyperlipidemia, unspecified; K21.9 Gastro-esophageal reflux disease without esophagitis; I10 Essential (primary) hypertension; Z98.42 Cataract extraction status, left eye; Z96.641 Presence of right artificial hip joint; Z96.651 Presence of right artificial knee joint; X58.XXXA Exposure to other specified factors, initial encounter; Y93.89 Activity, other specified; Y92.89 Other specified places as the place of occurrence of the external cause; Y99.8 Other external cause status

== ENCOUNTER → 2025-03-12 | Outpatient (CLI) | payer MEDICARE, OTHER | END | disposition home or self-care (01) | LOC: WOUNDCARE 01:38 | PROVIDERS: ATTEND Nurse Practitioner Family | DX: S81.812D Laceration without foreign body, left lower leg, subsequent encounter (principal); I87.2 Venous insufficiency (chronic) (peripheral); I10 Essential (primary) hypertension; E78.5 Hyperlipidemia, unspecified; K21.9 Gastro-esophageal reflux disease without esophagitis; Z98.49 Cataract extraction status, unspecified eye; Z96.641 Presence of right artificial hip joint; Z96.651 Presence of right artificial knee joint; X58.XXXD Exposure to other specified factors, subsequent encounter ==

== ENCOUNTER → 2025-03-19 | Outpatient (CLI) | payer MEDICARE, OTHER | LOC: WOUNDCARE 00:32 | PROVIDERS: ATTEND Nurse Practitioner Family | DX: S81.812D Laceration without foreign body, left lower leg, subsequent encounter (principal); I87.2 Venous insufficiency (chronic) (peripheral); I10 Essential (primary) hypertension; K21.9 Gastro-esophageal reflux disease without esophagitis; E78.5 Hyperlipidemia, unspecified; Z98.42 Cataract extraction status, left eye; Z96.641 Presence of right artificial hip joint; Z96.651 Presence of right artificial knee joint; Z79.82 Long term (current) use of aspirin; Z79.899 Other long term (current) drug therapy; W23.0XXD Caught, crushed, jammed, or pinched between moving objects, subsequent encounter ==

== ENCOUNTER → 2025-04-02 | Outpatient (CLI) | payer MEDICARE, OTHER | LOC: WOUNDCARE 02:58 | PROVIDERS: ATTEND Nurse Practitioner Family | DX: S81.812D Laceration without foreign body, left lower leg, subsequent encounter (principal); E78.5 Hyperlipidemia, unspecified; K21.9 Gastro-esophageal reflux disease without esophagitis; I10 Essential (primary) hypertension; I87.2 Venous insufficiency (chronic) (peripheral); Z98.42 Cataract extraction status, left eye; Z96.641 Presence of right artificial hip joint; Z96.651 Presence of right artificial knee joint; X58.XXXD Exposure to other specified factors, subsequent encounter ==